=== PATIENT | female | born 1970 | race Caucasian/White ===

== ENCOUNTER → 2020-04-10 14:58 | Outpatient (CLI) | payer BC, SELFPAY ==
[2020-04-10 17:48] LABS: Absolute Lymphocyte Count 2.64 X10^3/uL (0.83-4.51); Absolute Neutrophil Count 5.2 X10^3/uL (2.0-7.7); Basophil# 0.05 X10^3/uL; Basophil% 0.6 % (0-1); Eosinophil# 0.12 X10^3/uL; Eosinophils% 1.4 % (0-5); Hematocrit 39.3 % (37-47); Hemoglobin 12.6 g/dL (12.0-15.0); Lymphocyte # 2.64 X10^3/ul (4.0); Lymphocyte % 30.8 % (19-41); Mean Corp Hgb Conc 32.1 g/dL (32-36); Mean Corpuscular Hgb 30.3 pg (27.0-32.0); Mean Corpuscular Volume 94.5 fL (81-99); Monocyte# 0.47 X10^3/uL; Monocyte% 5.5 % (0-10); NRBC Flagged by Analyzer 0 % (0-5); Neutrophil # 5.15 X10^3/uL (2.7-7.7); Neutrophil % 60.2 % (47-70); Platelet Count 277 K/mm3 (150-450); RBC Distribution Width CV 13.2 % (11.6-14.6); RBC Distribution Width SD 45.6 fl (35.1-43.9); Red Blood Count 4.16 M/mm3 (4.2-5.4); White Blood Count 8.6 K/mm3 (4.4-11.0)
[2020-04-10 19:15] LABS: ALB/GLOB Ratio 0.9 RATIO (0.9-2.4); AST(SGOT) 19 U/L (15-37); Alanine Aminotransfer ALT/SGPT 37 U/L (13-56); Albumin, Serum 3.6 g/dL (3.2-5.0); Alkaline Phosphatase 114 U/L (45-117); Anion Gap 8 (5-15); BUN 15 mg/dL (7-18); BUN/Creat Ratio 16.1 RATIO (10-20); Calcium,Total 9.4 mg/dL (8.5-10.1); Chloride 109 mmol/L (98-107); Cholesterol 179 mg/dL (200); Creatinine, Serum 0.93 mg/dL (0.55-1.02); EST Glomerular Filtration Rate 68 mL/min (>60); Est Glom Filt Rate - Afr Amer 82 mL/min (>60); Globulin 3.8 g/dL (2.2-4.2); Glucose 89 mg/dL (74-106); High Density Lipoprotein 37 mg/dL; Potassium 3.9 mmol/L (3.5-5.1); Protein, Total 7.4 g/dL (6.4-8.2); Sodium Level 141 mmol/L (136-145); T4 Free Direct 0.83 ng/dL (0.76-1.46); Thyroid Stim Hormone (TSH) 3.95 uIU/mL (0.358-3.74)
[2020-04-13 12:38] LABS: H. PYLORI STOOL AG Negative (Negative)
== END ==
PROVIDERS: PCP Family Medicine; Referring Provider Family Medicine; Visit Provider Family Medicine
DX: E03.9 Hypothyroidism, unspecified (principal); E78.00 Pure hypercholesterolemia, unspecified; K21.9 Gastro-esophageal reflux disease without esophagitis; K58.1 Irritable bowel syndrome with constipation
CPT/HCPCS: 36415; 80053; 82465; 83718; 84439; 84443; 85025

== ENCOUNTER → 2020-04-25 13:31 | Outpatient (CLI) | payer BC, SELFPAY ==
--- NOTE | 2020-04-25 13:33 | BI_ITS ---
MAMMOGRAPHY - BILATERAL SCREENING REASON FOR EXAM: Female, 49 years old. Routine annual screening examination. PERTINENT HISTORY: Grandmother with breast cancer. Bilateral milky discharge. TECHNIQUE: Digital bilateral breast camilo (3D mammographic acquisition) in the CC and MLO projections. 2-D mediolateral oblique (MLO) and craniocaudad (CC) views of both breasts were obtained. CAD: Full Field Digital Mammography with Computer Added Detection was performed. COMPARISON: Comparison is made with prior abdomen examination dated 09/16/2017. FINDINGS: Breast Composition: The breasts are extremely dense, which lowers the sensitivity of mammography. There are no dominant masses or suspicious calcifications. Stable benign-appearing left axillary lymph nodes. No other significant abnormalities are identified. There has been no significant change since the prior study. BI/SCRN MAMM (CAD)W/CAMILO BILAT IMPRESSION: Stable bilateral screening mammogram. Yearly follow-up mammogram recommended. (A) ASSESSMENT CATEGORY: BIRADS Category 2: Benign. A letter regarding these results will be sent to the patient by the facility within 30 days. Approximately 10% of breast cancers are not detected by mammography. A normal mammogram should not delay biopsy of a clinically suspicious abnormality. [id number] Electronically Signed: Wilfred Oneill MD at 12:39 EDT , Service support ,
== END ==
PROVIDERS: PCP Family Medicine; Referring Provider Family Medicine; Visit Provider Family Medicine
DX: Z12.31 Encounter for screening mammogram for malignant neoplasm of breast (principal)
CPT/HCPCS: 77063; 77067

== ENCOUNTER → 2020-09-11 12:52 | Outpatient (CLI) | payer BC, SELFPAY ==
[2020-09-05 13:34] VITALS: BMI 36.6
--- NOTE | 2020-09-11 13:04 | ECHOCS_ITS ---
Reason For Study: Abnormal EKG Procedure This was a 2D Doppler, Color Flow transthoracic echocardiogram. The study was technically difficult. Contrast injection was performed. Exam performed in department. Left Ventricle Based upon the 2D electrographic and contrast enhanced images obtained appears to be grossly normal left ventricular size, wall motion, and systolic function. The estimated ejection fraction is 65 %. Transmitral doppler flow suggestive of impaired relaxation of left ventricle. Right Ventricle Normal RV size. Normal systolic function. Atria Normal left atrium. Normal right atrium. No doppler evidence for ASD. Mitral Valve There is no mitral annular calcification. Normal mitral valve. Trivial mitral valve insufficiency. Tricuspid Valve Normal tricuspid valve. Mild tricuspid valve insufficiency. Unable to estimate RV systolic pressure/pulmonary artery pressure due to technically difficult study. Aortic Valve Trisinus/trileaflet aortic valve. Normal aortic valve. Pulmonic Valve The pulmonic valve is not well visualized. Great Vessels Normal sized aortic root. Pericardium/Pleural No pericardial effusion. Medication 22 gauge I.V. with prn adaptor inserted into right arm. Diluted definity 3ml given slow IV push to enhance endocardial definition. MMode/2D Measurements & Calculations LVIDd: 4.9 cm IVSd: 0.82 cm Ao root diam: 3.1 cm LVIDs: 3.1 cm LVPWd: 1.0 cm LA dimension: 3.8 cm FS: 36.0 % LAV(MOD-bp): 35.4 ml LA A4 area: 13.3 cm2 RA A4 area: 11.5 cm2 LAV(MOD-bp) Indexed: 16.8 ml/m2 LAV(MOD-sp2): 44.4 ml LAV(MOD-sp4): 27.1 ml Time Measurements MV dec time: 0.23 sec Doppler Measurements & Calculations MV E max isac: 61.5 cm/sec Lat Peak E' Isac: 8.8 cm/sec Med Peak E' Isac: 8.1 cm/sec MV A max isac: 73.4 cm/sec E/E' lat: 7.0 E/E' med: 7.6 MV E/A: 0.84 MV V2 max: 75.9 cm/sec MV P1/2t max isac: 61.9 cm/sec Ao V2 max: 138.6 cm/sec MV max P.3 mmHg MV P1/2t: 69.0 msec Ao max P.7 mmHg MV V2 mean: 45.8 cm/sec MV dec slope: 262.8 cm/sec2 MV mean P.97 mmHg MV V2 VTI: 15.6 cm MVA(P1/2t): 3.2 cm2 AI max isac: 424.5 cm/sec LV V1 max: 110.1 cm/sec PA V2 max: 95.3 cm/sec AI max P.1 mmHg LV V1 max P.8 mmHg AI dec slope: 253.4 cm/sec2 AI P1/2t: 490.5 msec ECHO/Echo Complete W/ Contrast Interpretation Summary The study was technically difficult. Contrast injection was performed. Based upon the 2D electrographic and contrast enhanced images obtained appears to be grossly normal left ventricular size, wall motion, and systolic function. The estimated ejection fraction is 65 %. Trivial mitral valve insufficiency. Mild tricuspid valve insufficiency. Unable to estimate RV systolic pressure/pulmonary artery pressure due to techni kelley difficult study. Transmitral doppler flow suggestive of impaired relaxation of left ventricle Ordering Physician: Erasmo Casey Referring Physician: Robert Patricia Performed By: Fernandez Koenig RCS
== END ==
PROVIDERS: PCP Family Medicine; Referring Provider Internal Medicine Cardiovascular Disease; Visit Provider Internal Medicine Cardiovascular Disease
DX: R94.31 Abnormal electrocardiogram [ECG] [EKG] (principal); I10 Essential (primary) hypertension; E78.2 Mixed hyperlipidemia; I45.6 Pre-excitation syndrome
CPT/HCPCS: 93225; 93226; 93306; Q9957; A4216; C8929; J3490

== ENCOUNTER → 2021-09-30 | Outpatient (CLI) | payer BC, SELFPAY ==
--- NOTE | 2021-09-30 08:55 | STRESSREP ---
Stress Test Report Date: 09-30-2021 Procedure: Exercise tolerance test/imaging study Indications: Chest pain; cardiac dysrhythmia/WPW status post EPS/RFA Consent: Per the patient Procedure: The patient exercised on a Tk protocol for 4 minutes and 45 seconds completing Stage I and 1 minute and 45 seconds of Stage II achieving a peak heart rate of 151 bpm (88% predicted maximal heart rate) with a peak blood pressure 160/82 mmHg and a peak MET capacity of 7 METs. The baseline ECG demonstrated normal sinus rhythm. The peak exercise ECG demonstrated somatic/motion artifact with no obvious ECG changes. There was a rare PVC at peak exercise. The functional capacity was considered fair. There was no complaint of chest discomfort during exercise or recovery. The examination was discontinued secondary to dyspnea and dizziness. Impression: 1. Technically adequate (percent predicted maximal heart rate greater than 85%) exercise tolerance test 2. Peak exercise ECG with somatic/motion artifact with no obvious ECG changes 3. There was a rare PVC at peak exercise 4. Nuclear images pending Myocardial perfusion imaging study: Technique: The patient was injected with 14.7 mCi of technetium 99m Cardiolite and subsequently rest SPECT Cardiolite nuclear imaging was obtained in the horizontal long, vertical long, and short axis views. The patient exercised on a Tk protocol for 4 minutes and 45 seconds completing Stage I and 1 minute and 45 seconds of Stage II achieving a peak heart rate of 151 bpm (88% predicted maximal heart rate) with a peak blood pressure 160/82 mmHg and a peak MET capacity of 7 METs. The patient was injected with 44.6 mCi of technetium 99m Cardiolite and subsequently stress SPECT Cardiolite nuclear imaging was obtained in the horizontal long, vertical long, and short axis views. A gated Cardiolite study at peak stress was obtained. Interpretation: Rest and stress SPECT Cardiolite nuclear imaging status post realignment, normalization, and attenuation correction, demonstrates the appearance of body motion during image acquisition and otherwise relative uniform tracer uptake and myocardial perfusion appearing within normal limits. There is end systolic thickening and brightening. The gated Cardiolite study demonstrates myocardial thickening and inward wall motion. The reported LVEF is 75%. Impression: 1. Rest and stress SPECT Cardiolite nuclear imaging demonstrate relative uniform tracer uptake and myocardial perfusion appearing within normal limits. 2. The gated Cardiolite study reports an LVEF of 75%. This note was generated with Dragon dictation software. It may contain incorrect words, spelling, and punctuation that were not noted in checking the note before signing.
== END | disposition home or self-care (01) ==
PROVIDERS: PCP Family Medicine; Referring Provider Internal Medicine Cardiovascular Disease; Visit Provider Internal Medicine Cardiovascular Disease
DX: R07.9 Chest pain, unspecified (principal); I45.6 Pre-excitation syndrome; E78.2 Mixed hyperlipidemia; I10 Essential (primary) hypertension; R94.31 Abnormal electrocardiogram [ECG] [EKG]
CPT/HCPCS: 78452; 93017; A9500; A4216

== ENCOUNTER → 2021-12-05 | Outpatient (CLI) | payer BC, SELFPAY ==
[2021-12-05 18:47] LABS: AST(SGOT) 17 U/L (15-37); Alanine Aminotransfer ALT/SGPT 30 U/L (13-56); Alkaline Phosphatase 109 U/L (45-117); Anion Gap 7 (5-15); BUN 19 mg/dL (7-18); BUN/Creat Ratio 18.1 RATIO (10-20); Calcium,Total 9.5 mg/dL (8.5-10.1); Chloride 105 mmol/L (98-107); Cholesterol 202 mg/dL (200); Creatinine, Serum 1.05 mg/dL (0.55-1.02); EST Glomerular Filtration Rate 59 mL/min (>60); Est Glom Filt Rate - Afr Amer 71 mL/min (>60); Globulin 3.9 g/dL (2.2-4.2); Glucose 97 mg/dL (74-106); High Density Lipoprotein 35 mg/dL; Potassium 4.4 mmol/L (3.5-5.1); Protein, Total 7.9 g/dL (6.4-8.2); Sodium Level 138 mmol/L (136-145); T4 Free Direct 0.85 ng/dL (0.76-1.46); Thyroid Stim Hormone (TSH) 2.79 uIU/mL (0.358-3.74); Triglycerides 126 mg/dL; Very Low Density Lipoprotein 25 mg/dL (5-40)
[2021-12-05 19:20] LABS: Hemoglobin A1c 5.9 % (3.8-5.6)
== END | disposition home or self-care (01) ==
LOC: MTLAB 15:29
PROVIDERS: PCP Family Medicine; Referring Provider Family Medicine; Visit Provider Family Medicine
DX: Z00.00 Encounter for general adult medical examination without abnormal findings (principal); F31.9 Bipolar disorder, unspecified; E03.9 Hypothyroidism, unspecified; E78.00 Pure hypercholesterolemia, unspecified; E66.9 Obesity, unspecified; Z68.37 Body mass index [BMI] 37.0-37.9, adult
CPT/HCPCS: 36415; 80053; 80061; 83036; 84439; 84443

== ENCOUNTER → 2022-01-13 | Outpatient (CLI) | payer BC, SELFPAY ==
--- NOTE | 2022-01-13 11:48 | BI_ITS ---
MAMMOGRAPHY - BILATERAL SCREENING REASON FOR EXAM: Female, 51 years old. Routine annual screening examination. PERTINENT HISTORY: Grandmother with breast cancer. Aunts with breast cancer. TECHNIQUE: Digital bilateral breast camilo (3D mammographic acquisition) in the CC and MLO projections. 2-D mediolateral oblique (MLO) and craniocaudad (CC) views of both breasts were obtained. CAD: Full Field Digital Mammography with Computer Added Detection was performed. COMPARISON: Comparison is made with prior study dated 04/25/2020. FINDINGS: Breast Composition: The breasts are extremely dense, which lowers the sensitivity of mammography. There are no dominant masses or suspicious calcifications. Stable small benign-appearing bilateral axillary lymph nodes. No other significant abnormalities are identified. There has been no significant change since the prior study. BI/SCRN MAMM (CAD)W/CAMILO BILAT IMPRESSION: Stable bilateral screening mammogram. Yearly follow-up mammogram recommended. (A) ASSESSMENT CATEGORY: BIRADS Category 2: Benign. A letter regarding these results will be sent to the patient by the facility within 30 days. Approximately 10% of breast cancers are not detected by mammography. A normal mammogram should not delay biopsy of a clinically suspicious abnormality. [id number] Electronically Signed: Wilfred Oneill MD at 12:59 EST ,
== END | disposition home or self-care (01) ==
LOC: OPBI 11:32
PROVIDERS: PCP Family Medicine; Referring Provider Family Medicine; Visit Provider Family Medicine
DX: Z12.31 Encounter for screening mammogram for malignant neoplasm of breast (principal)
CPT/HCPCS: 77063; 77067

== ENCOUNTER → 2023-01-20 | Outpatient (CLI) | payer BC, SELFPAY ==
[2023-01-20 15:39] LABS: ALB/GLOB Ratio 1.1 RATIO (0.9-2.4); AST(SGOT) 28 U/L (15-37); Alanine Aminotransfer ALT/SGPT 42 U/L (13-56); Albumin, Serum 3.6 g/dL (3.2-5.0); Alkaline Phosphatase 89 U/L (45-117); Anion Gap 4 (5-15); BUN 15 mg/dL (7-18); BUN/Creat Ratio 15.7 RATIO (10-20); Calcium,Total 8.6 mg/dL (8.5-10.1); Chloride 108 mmol/L (98-107); Cholesterol 176 mg/dL (200); Creatinine, Serum 0.96 mg/dL (0.55-1.02); EST Glomerular Filtration Rate 65 mL/min (>60); Est Glom Filt Rate - Afr Amer 79 mL/min (>60); Globulin 3.4 g/dL (2.2-4.2); Glucose 113 mg/dL (74-106); High Density Lipoprotein 42 mg/dL; Potassium 4.3 mmol/L (3.5-5.1); Sodium Level 137 mmol/L (136-145); T4 Free Direct 0.82 ng/dL (0.76-1.46); Thyroid Stim Hormone (TSH) 3.03 uIU/mL (0.358-3.74); Triglycerides 82 mg/dL; Very Low Density Lipoprotein 16 mg/dL (5-40)
[2023-01-20 15:48] LABS: Microalbumin,Random Urine 25.5 mg/L (NO RANGE EST.); Microalbumin:Creatinine Ratio 8.9 mg/g CRE (<30 mg/g CRE)
[2023-01-20 16:22] LABS: Vitamin D,25 Hydroxy 20.7 ng/mL
== END | disposition home or self-care (01) ==
LOC: MFPLAB 12:26
PROVIDERS: PCP Family Medicine; Visit Provider Family Medicine
DX: E03.9 Hypothyroidism, unspecified (principal); E66.9 Obesity, unspecified; N18.2 Chronic kidney disease, stage 2 (mild); E78.00 Pure hypercholesterolemia, unspecified
CPT/HCPCS: 36415; 80053; 80061; 82043; 82306; 82570; 84439; 84443

== ENCOUNTER → 2023-06-15 | Outpatient (CLI) | payer BC, SELFPAY ==
--- NOTE | 2023-06-15 12:29 | BI_ITS ---
MAMMOGRAPHY - BILATERAL SCREENING REASON FOR EXAM: Female, 52 years old. Routine annual screening examination. PERTINENT HISTORY: Grandmother with breast cancer. Aunts with breast cancer. TECHNIQUE: Digital bilateral breast camilo (3D mammographic acquisition) in the CC and MLO projections. 2-D mediolateral oblique (MLO) and craniocaudad (CC) views of both breasts were obtained. CAD: Full Field Digital Mammography with Computer Added Detection was performed. COMPARISON: Comparison is made with prior study dated January 13, 2022 and April 25, 2020. FINDINGS: Breast Composition: The breasts are extremely dense, which lowers the sensitivity of mammography. There are no dominant masses or suspicious calcifications. No other significant abnormalities are identified. There has been no significant change since the prior study. BI/SCRN MAMM (CAD)W/CAMILO BILAT IMPRESSION: Stable bilateral screening mammogram. Yearly follow-up mammogram recommended. (A) ASSESSMENT CATEGORY: BIRADS Category 1: Negative. A letter regarding these results will be sent to the patient by the facility within 30 days. Approximately 10% of breast cancers are not detected by mammography. A normal mammogram should not delay biopsy of a clinically suspicious abnormality. [id number] Electronically Signed: Wilfred Oneill MD at 13:36 EDT ,
== END | disposition home or self-care (01) ==
LOC: OPBI 12:28
PROVIDERS: PCP Family Medicine; Referring Provider Family Medicine; Visit Provider Family Medicine
DX: Z12.31 Encounter for screening mammogram for malignant neoplasm of breast (principal)
CPT/HCPCS: 77063; 77067

== ENCOUNTER → 2023-07-22 | Outpatient (CLI) | payer BC, SELFPAY ==
[2023-07-22 17:49] LABS: Absolute Lymphocyte Count 3.11 X10^3/uL (0.83-4.51); Absolute Neutrophil Count 4.7 X10^3/uL (2.0-7.7); Basophil# 0.06 X10^3/uL; Basophil% 0.7 % (0-1); Eosinophil# 0.09 X10^3/uL; Hematocrit 39.4 % (37-47); Hemoglobin 12.9 g/dL (12.0-15.0); Lymphocyte # 3.11 X10^3/ul (0.83-4.51); Lymphocyte % 35.8 % (19-41); Mean Corp Hgb Conc 32.7 g/dL (32-36); Mean Corpuscular Hgb 30.8 pg (27.0-32.0); Mean Platelet Vol. 10.1 fl (6.2-12.0); Monocyte# 0.57 X10^3/uL; Monocyte% 6.6 % (0-10); NRBC Flagged by Analyzer 0 % (0-5); Neutrophil % 54.1 % (47-70); Platelet Count 265 K/mm3 (150-450); RBC Distribution Width CV 12.9 % (11.6-14.6); RBC Distribution Width SD 44.6 fl (35.1-43.9); Red Blood Count 4.19 M/mm3 (4.2-5.4); White Blood Count 8.7 K/mm3 (4.4-11.0)
[2023-07-22 18:27] LABS: ALB/GLOB Ratio 1.1 RATIO (0.9-2.4); AST(SGOT) 34 U/L (15-37); Alanine Aminotransfer ALT/SGPT 46 U/L (13-56); Albumin, Serum 3.9 g/dL (3.2-5.0); Alkaline Phosphatase 99 U/L (45-117); Anion Gap 6 (5-15); BUN 19 mg/dL (7-18); BUN/Creat Ratio 22.3 RATIO (10-20); Calcium,Total 9.4 mg/dL (8.5-10.1); Chloride 107 mmol/L (98-107); Creatinine, Serum 0.85 mg/dL (0.55-1.02); EST Glomerular Filtration Rate 74 mL/min (>60); Est Glom Filt Rate - Afr Amer 90 mL/min (>60); Free T3 2.1 pg/mL (2.18-3.98); Globulin 3.7 g/dL (2.2-4.2); Glucose 67 mg/dL (74-106); Lipase 29 U/L (13-75); Potassium 4.1 mmol/L (3.5-5.1); Protein, Total 7.6 g/dL (6.4-8.2); Sodium Level 137 mmol/L (136-145); T4 Free Direct 0.83 ng/dL (0.76-1.46); Thyroid Stim Hormone (TSH) 3.39 uIU/mL (0.358-3.74)
[2023-07-25 15:09] LABS: H. PYLORI STOOL AG Negative (Negative)
[2023-07-26 16:09] LABS: Deamidated Gliadin IgA 3 units (0-19); Deamidated Gliadin IgG 2 units (0-19); Endomysial Antibody IgA Negative (Negative); Immunoglobulin A 68 mg/dL (87-352); t-Transglutaminase IgA <2 U/mL (0-3)
[2023-07-27 11:09] LABS: Beef <0.10 kU/L (Class 0); Chocolate <0.10 kU/L (Class 0); Codfish <0.10 kU/L (Class 0); Corn <0.10 kU/L (Class 0); Egg, Whole <0.10 kU/L (Class 0); Milk (Cow) <0.10 kU/L (Class 0); Mussels <0.10 kU/L (Class 0); Peanut <0.10 kU/L (Class 0); Pork <0.10 kU/L (Class 0); Salmon <0.10 kU/L (Class 0); Shrimp <0.10 kU/L (Class 0); Soybean <0.10 kU/L (Class 0); Tuna <0.10 kU/L (Class 0); Wheat <0.10 kU/L (Class 0)
== END | disposition home or self-care (01) ==
LOC: MFPLAB 14:35
PROVIDERS: PCP Family Medicine; Visit Provider Family Medicine
DX: E03.9 Hypothyroidism, unspecified (principal); R10.13 Epigastric pain; R11.10 Vomiting, unspecified
CPT/HCPCS: 36415; 80053; 82784; 83516; 83690; 84439; 84443; 84481; 85025; 86003; 86005; 86255; 87338

== ENCOUNTER → 2023-08-06 | Outpatient (CLI) | payer BC, SELFPAY ==
--- NOTE | 2023-08-06 08:30 | RAD_ITS ---
PROCEDURE: After contrast Upper GI with Small Bowel Follow Through DATE OF EXAMINATION: August 06, 2023.. INDICATION: Female, 52 years old. Vomiting and epigastric pain. FLUOROSCOPY TIME (if supplied): (1:20) minutes/seconds. 53.19 mGy. 18 images were obtained. TECHNIQUE: Radiographic and fluoroscopic images of the distal esophagus, stomach, and entire small intestine were obtained following the oral ingestion of barium. COMPARISON: None. FINDINGS: The 911 emergency services dispatcher film of the abdomen demonstrates a normal bowel gas pattern. There are no abnormal calcifications or organomegaly demonstrated. The visualized osseous structures are normal. The esophagus is unremarkable. No evidence of obstruction. No gastroesophageal reflux is seen. The stomach and duodenum are unremarkable. A single contrast small bowel follow through exam demonstrates the small bowel to have no evidence for stricture, ulceration or mass. The transit time is normal at 30 minutes. RAD/Upper GI/w Small Bowel IMPRESSION: 1. Normal air-contrast upper GI and small bowel follow-through exam. Electronically Signed: Wilfred Oneill MD at 15:09 EDT ,
== END | disposition home or self-care (01) ==
LOC: RAD 08:03
PROVIDERS: PCP Family Medicine; Referring Provider Family Medicine; Visit Provider Family Medicine
DX: R10.13 Epigastric pain (principal)
CPT/HCPCS: 74246; 74248

== ENCOUNTER 2023-12-02 12:30 | Outpatient (RCR) | payer BC, SELFPAY ==
--- NOTE | 2023-10-28 13:35 | HP.PTEVAL_ITS ---
Patient's Visit Information Visit Information Visit Information: HAMMAD GARCIA is a 53 year old F referred to Physical Therapy by Dr. Robert Patricia MD with a diagnosis of RIGHT PATEALLA SUBLUXATION. Date of Evaluation: 10/28/23 Physical Therapist: Kirill Zhang PT, Cert MDT, OCS Visit Plan Frequency: 2x /Week Duration: 4 Weeks Plan: PT INTERVENTIONS QUADS/HAMS/HIP STRENGTHENING ,(CLOSED RIDLEY ) ,F LEXABILITY AND FUNCTIONAL STRENGTHENING Subjective Subjective: This 53 y/o female presents to physical therapy with right knee pain. Patient has had right knee pain ~ 1 year. Patient fell on knee 1 year ago caused pain. Seen DR recommended PT and no imaging. Patient has h/o subluxation knee. Pain located patella . Pain described ache/sharp. Aggravating factors squatting/kneeling . Alleviating factors. rest. Patient symptoms affects QOL and function. Patient goals to get stronger. Patient sleeping good at night . Patient denies paresthesia/tingling. SOCIAL: single VOACTION: disability Pain Right Knee: Pain Intensity (Out of 10): 2 Pain Intensity Range: 10 Objective Objective: POSTURE: knee valgus ,patella lexie ,lateral tilt patella NEURO: denies paresthesia/tingling AROM: noted crepitus GAIT: reciprocal pattern AROM: 0-125 Degrees with crepitus MMT: quads/hams ,( peak force)hip abduction right 22.1 ,ankle 5/5 NEURO: denies paresthesia/tingling Balance/Special Test Scores Lower Extremity Functional Score: 38 Goals Goal 1:: Patient to be I with HEP for knee Goal Time Frame: 4-6 Weeks Goal 2:: Patient to improve LFES score by 5 points to improve QOL and function Goal Time Frame: 4-6 Weeks Goal 3:: Patient to demonstrate 50% improvement with function and ADLS with less pain. 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 with pain with activity and generalized weakness thus benefit from skilled PT Rehabilitation Potential: Good Anticipated Interventions Patient/Client Instruction: Educate patient on: Condition and Plan of Care For the Purpose of:: To decrease pain, To increase ROM, To improve muscle performance and motor function, To improve ability to perform ADL's, To increase tolerance to activity/condition/position, To improve ability of physical actions for home/community/work/leisure, To improve gait and locomotor functions, To increase flexibility/ROM, To improve endurance, To improve balance, To reduce ri sk of recurrence and To improve tolerance to ADL's Therapeutic Exercise to Include: Strength training, Flexibilty training and Active ROM Comment: QUADS/HAMS/HIP For the Purpose of:: To decrease pain, To increase ROM, To improve muscle performance and motor function, To increase tolerance to activity/condition/position, To improve ability of physical actions for home/community/work/leisure, To improve health of tissue, To decrease soft tissue restriction, To increase flexibility/ROM and To prevent re-injury TENS: Yes IF ES: Yes Cryotherapy (ice pack, ice massage): Yes Ultrasound (thermal/non thermal): Yes For the Purpose of:: To decrease pain, To decrease swelling/inflammation, To improve health of tissue and To decrease soft tissue restriction Text: Thank you for the opportunity to evaluate your patient. For Medicare and Medicare HMO plans, please review the plan of care and approve it. It will need to be FAXED BACK to us at [phone] for Medicare purposes. For Medicare only, by signing this I certify the plan of care. Please let me know if there are questions or concerns regarding this plan of care. Physician Signat ure: Date:
--- NOTE | 2023-12-02 12:50 | HP.PTDCSUM ---
Discharge Summary D/C summary: It has been my pleasure to treat HAMMAD GARCIA referred by Dr. Robert Patricia MD, with the diagnosis of RIGHT PATEALLA SUBLUXATION for a total of 9 visit(s). Discharge Date: 12/02/23 Please see the following information for a summary of their discharge status. Subjective Subjective: Patient doing well less pain little pain with steps Pain Right Knee: Pain Intensity (Out of 10): 0 Overall Improvement % Improvement: 70 Objective Objective/Function: POSTURE: knee valgus ,patella lexie ,lateral tilt patella NEURO: denies paresthesia/tingling AROM: noted crepitus GAIT: reciprocal pattern AROM: 0-125 Degrees with crepitus MMT: quads/hams ,( peak force)hip abduction right 28.1 ,ankle 5/5 NEURO: denies paresthesia/tingling Goals Goal 1:: Patient to be I with HEP for knee Goal Progress: Goal Met Goal 2:: Patient to improve LFES score by 5 points to improve QOL and function Goal Progress: Goal Met Goal 3:: Patient to demonstrate 50% improvement with function and ADLS with less pain. Goal Progress: Goal Met Goal 4:: Patient to improve peak force hips by 5-10 # to improve function and gait Goal Progress: Goal Met Plan Plan: D.C TO HOME D/C Information Discharge Comments: HEP d/c sentence: If there are questions or concerns regarding this patient's physical therapy, please feel free to call me at [phone]. Thank you for the referral of this patient. Sincerely, Kirill Zhang, PT, Cert MDT, OCS Balance/Gait/Functional tests Balance/Special Test Scores Lower Extremity Functional Score: 55 Improvement % Improvement: 70
== END 2023-12-02 19:00 | disposition home or self-care (01) ==
LOC: PT 12:30
PROVIDERS: PCP Family Medicine; Referring Provider Family Medicine; Visit Provider Family Medicine
DX: S83.001D Unspecified subluxation of right patella, subsequent encounter (principal); M22.41 Chondromalacia patellae, right knee
CPT/HCPCS: 97110; 97162; 97530

== ENCOUNTER → 2024-02-04 | Outpatient (CLI) | payer BC, SELFPAY ==
[2024-02-04 15:09] LABS: Hematocrit 38.9 % (37-47); Hemoglobin 13.1 g/dL (12.0-15.0); Mean Corp Hgb Conc 33.7 g/dL (32-36); Mean Corpuscular Hgb 30.5 pg (27.0-32.0); Mean Corpuscular Volume 90.7 fL (81-99); Mean Platelet Vol. 10.4 fl (6.2-12.0); Platelet Count 242 K/mm3 (150-450); RBC Distribution Width CV 12.8 % (11.6-14.6); RBC Distribution Width SD 42.2 fl (35.1-43.9); Red Blood Count 4.29 M/mm3 (4.2-5.4); White Blood Count 7.7 K/mm3 (4.4-11.0)
[2024-02-04 17:00] LABS: Hemoglobin A1c 6.1 % (3.8-5.6)
[2024-02-04 18:11] LABS: ALB/GLOB Ratio 1.1 RATIO (0.9-2.4); AST(SGOT) 32 U/L (15-37); Alanine Aminotransfer ALT/SGPT 51 U/L (13-56); Albumin, Serum 3.9 g/dL (3.2-5.0); Alkaline Phosphatase 105 U/L (45-117); Anion Gap 8 (5-15); BUN 17 mg/dL (7-18); BUN/Creat Ratio 17.1 RATIO (10-20); Calcium,Total 9.6 mg/dL (8.5-10.1); Chloride 108 mmol/L (98-107); Cholesterol 193 mg/dL (200); EST Glomerular Filtration Rate 62 mL/min (>60); Est Glom Filt Rate - Afr Amer 75 mL/min (>60); Globulin 3.5 g/dL (2.2-4.2); Glucose 94 mg/dL (74-106); High Density Lipoprotein 48 mg/dL; Potassium 4.1 mmol/L (3.5-5.1); Protein, Total 7.4 g/dL (6.4-8.2); Sodium Level 137 mmol/L (136-145); Triglycerides 83 mg/dL; Very Low Density Lipoprotein 17 mg/dL (5-40)
[2024-02-06 08:07] LABS: PROLACTIN 55.3 ng/mL (3.6-25.2)
== END | disposition home or self-care (01) ==
LOC: MTLAB 13:00
PROVIDERS: PCP Family Medicine; Referring Provider Psychiatry & Neurology Psychiatry; Visit Provider Psychiatry & Neurology Psychiatry
DX: Z79.899 Other long term (current) drug therapy (principal)
CPT/HCPCS: 36415; 80053; 80061; 83036; 84146; 84443; 85027

== ENCOUNTER → 2024-05-02 | Outpatient (CLI) | payer BC, SELFPAY ==
[2024-05-02 18:57] LABS: ALB/GLOB Ratio 1.5 RATIO (0.9-2.4); AST(SGOT) 37 U/L (<=31); Alanine Aminotransfer ALT/SGPT 43 U/L (<=34); Albumin, Serum 4.3 g/dL (3.5-5.0); Alkaline Phosphatase 92 U/L (35-104); Anion Gap 9 (5-15); BUN 18 mg/dL (4-19); BUN/Creat Ratio 19.3 RATIO (10-20); Calcium,Total 9.5 mg/dL (7.6-11.0); Carbon Dioxide 21.9 mmol/L (21.0-32.0); Chloride 105 mmol/L (98-108); Creatinine, Serum 0.92 mg/dL (0.70-1.20); EST Glomerular Filtration Rate 75 (>60); Globulin 2.8 g/dL (2.2-4.2); Glucose 93 mg/dL (70-99); Potassium 4.2 mmol/L (3.3-5.1); Protein, Total 7.1 g/dL (5.9-8.4); Sodium Level 136 mmol/L (133-145); Total Bilirubin 0.27 mg/dL (0.00-1.30)
[2024-05-02 19:00] LABS: Hemoglobin A1c 6.2 % (<=5.6)
== END | disposition home or self-care (01) ==
LOC: MFPLAB 15:55
PROVIDERS: PCP Family Medicine; Referring Provider Family Medicine; Visit Provider Family Medicine
DX: R73.03 Prediabetes (principal); R79.89 Other specified abnormal findings of blood chemistry
CPT/HCPCS: 36415; 80053; 83036; 84146

== ENCOUNTER → 2024-05-11 | Outpatient (CLI) | payer BC, SELFPAY ==
--- NOTE | 2024-05-11 09:17 | US_ITS ---
EXAM: ABDOMEN LIMITED 05/11/2024 CLINICAL HISTORY: Abnormal labs COMPARISON: None available TECHNIQUE: Right upper quadrant abdominal ultrasound limited FINDINGS: The visualized pancreas appears within limits without ductal dilation identified. The liver measures 17.9 cm and appears diffusely increased in echogenicity which can be seen with hepatic steatosis or other hepatocellular disease. Liver surface contour appears smooth. No evidence of intrahepatic biliary ductal dilation. Hepatic color flow is present with flow in the portal vein hepatopetal as expected. The gallbladder appears within limits without stones, wall thickening or pericholecystic free fluid. Report of a negative sonographic Jim's sign. Wall measures 2 mm. CBD measures 3 mm. The right kidney measures 10.6 x 5.5 x 4.7 cm with a cortical thickness of 1.3 cm. No hydronephrosis, renal stone or perinephric edema seen. No free fluid seen. US/Abdomen Limited IMPRESSION: The liver measures appears diffusely increased in echogenicity which can be see n with hepatic steatosis or other hepatocellular disease. Liver surface contour appears smooth. Reading Location: [id number]
== END | disposition home or self-care (01) ==
PROVIDERS: PCP Family Medicine; Referring Provider Family Medicine; Visit Provider Family Medicine
DX: R74.8 Abnormal levels of other serum enzymes (principal)
CPT/HCPCS: 76705

== ENCOUNTER 2024-05-31 13:00 | Outpatient (RCR) | payer BC, SELFPAY ==
--- NOTE | 2024-05-12 13:11 | HP.PTEVAL ---
Patient's Visit Information Visit Information Visit Information: HAMMAD GARCIA is a 53 year old F referred to Physical Therapy by Dr. Robert Patricia MD with a diagnosis of postural abnormality, dizzyness, hand tremor.. Date of Evaluation: 05/12/24 Physical Therapist: Robert Sánchez, DPT, OCS, CSCS Visit Plan Frequency: 2x /Week Duration: 2-4 Weeks Plan: 2x/week for 2 weeks for 1. MH and STM to pericervical MM B, please do manual ROM for rotation adn ret/ext and progress to home stretches of UT, lev scap and strengthening to neck with pics. EACH SESSION 2. please teach general overall body exercises and work to an I program over 4 visits(squats, , heel raises, hip abd and ext, crunches, rows, pull downs, cervical ret isometrics, paloff press, all with technique and pics for HEP over 4 visits. IE HEP, scap circles, cervical ret 15x 2x/day and postural focus aligning spine. Monitor dizzyness and tremors not present today. Subjective Subjective: Dr. Patricia wants neck looked at as it is tight. Other than tightnss , no other symptoms. Does get dizzy sometimes and tremors in hands in the am but not all the time and not a fucntional problem. No neck pain. Gets hand tremors and dizzyness upon waking one time per week. It lasts only a couple minutes. Neck has felt tight for weeks and may have slept wrong. Lives with mom in one story and no steps. Getting around well, no falls. Balance feels OK. Spends day working around house, mail, walk. Cleans. Not employed. Sleeping well. Basic ADLS all I Objective Objective: FW head posture with protracted scapula, tightness in pecs. Structural kyphosis and possibly thoracic scoliosis in her posture. walks into I with good balance, trasnfer chair I, steps reciprocal with one rail up and down. cervical AROM 65 rotation B feels tight, 50 extension with slight deviation L, feels tight, full flexion, L SB 20 adn R 24, no pain with any movements. UE AROM WFL shouldr, elbows, wrists. reflexes 2/3 bi adn tri Sensation UE WNL to gross light touch B UE. strength shoulder er 3+ B, IR 4- B, flexion abd 4-, no pain. elbows 4 B, wirsts 4 B, no myotomal abormalities or concerns. thumb ext 4/5 without pain. scapula are stable and protracted with limitations in mobillity retractions and depression as she tends to elevate them B. - c/s compression test - alar ligament test. No tenderness in cervical MM. Balance/Special Test Scores Functional Gait Assessment Score: 28 % Disability: 6.6700 Oswestry Neck Score: 12 Goals Goal 1:: 70 B rotation and 60 ext without stiffness. Goal Time Frame: 2-4 Weeks Goal 2:: Pt I in appropriate strength for whole body and neck ROM/ stretching ex. Goal Time Frame: 2-4 Weeks Goal 3:: Pt feel 50% better in overall presentation. Goal Time Frame: 2-4 Weeks Rehabilitation Potential Physical Therapy Diagnosis: postural abnormalities and weakness UE/posture may cause unnecessary symptoms. Rehabilitation Potential: Questionable Anticipated Interventions Patient/Client Instruction: Educate patient on: Condition For the Purpose of:: To increase ROM, To improve nutrient delivery to tissue, To increase tolerance to activity/condition/position and To improve ability of physical actions for home/community/work/leisure Therapeutic Exercise to Include: Strength training, Postural training, Flexibilty training, Passive ROM and Active ROM For the Purpose of:: To increase ROM, To improve nutrient delivery to tissue, To improve muscle performance and motor function, To increase tolerance to activity/condition/position, To improve ability of physical actions for home/community/work/leisure and To improve health of tissue Manual Therapy Techniques to Include: Mobilization, Passive ROM and Soft tissue mobilization For the Purpose of:: To improve nutrient delivery to tissue, To increase oxygenation perfusion, To increase tolerance to activity/condition/position and To improve health of tissue Thermo therapy (hot pack): Yes For the Purpose of:: To increase ROM Text: Thank you for the opportunity to evaluate your patient. For Medicare and Medicare HMO plans, please review the plan of care and approve it. It will need to be FAXED BACK to us at [phone] for Medicare purposes. For Medicare only, by signing this I certify the plan of care. Please let me know if there are questions or concerns regarding this plan of care. Physician Signature: Date:
--- NOTE | 2024-05-31 14:13 | HP.PTDCSUM ---
Discharge Summary D/C summary: It has been my pleasure to treat HAMMAD GRACIA referred by Dr. Robert Patricia MD, with the diagnosis of postural abnormality, dizzyness, hand tremor. for a total of 5 visit(s). Discharge Date: 05/31/24 Please see the following information for a summary of their discharge status. Subjective Subjective: Feeling better. Neck feels much better and burning in quadriceps with ex. Tremors are better. Not much dizzyness anymore infrequent in am. Not sure when f/u is with doctor. Wants to do ex at home now. Overall Improvement % Improvement: 95 Objective Objective/Function: 68 R and 66 L and 62 exercises Full UE AROM and strength at 4/5 adn no pain in neck or UE. no dizzynss with head movements today. No tremors Goals Goal 1:: 70 B rotation and 60 ext without stiffness. Goal Progress: Progressing Goal 2:: Pt I in appropriate strength for whole body and neck ROM/ stretching ex. Goal Progress: Goal Met Goal 3:: Pt feel 50% better in overall presentation. Goal Progress: 95% Plan Plan: d/c to HEP D/C Information Discharge Comments: Will continue HEP. d/c sentence: If there are questions or concerns regarding this patient's physical therapy, please feel free to call me at [phone]. Thank you for the referral of this patient. Sincerely, Robert Sánchez, DPT, OCS, CSCS Balance/Gait/Functional tests Balance/Special Test Scores Functional Gait Assessment Score: 28 % Disability: 6.6700 Oswestry Neck Score: 10 Improvement % Improvement: 95
== END 2024-05-31 14:39 | disposition home or self-care (01) ==
LOC: PT 13:00
PROVIDERS: PCP Family Medicine; Referring Provider Family Medicine; Visit Provider Family Medicine
DX: R42 Dizziness and giddiness (principal); G25.2 Other specified forms of tremor
CPT/HCPCS: 97110; 97140; 97161; 97164

== ENCOUNTER → 2024-06-01 | Outpatient (CLI) | payer BC, SELFPAY ==
--- NOTE | 2024-06-01 09:26 | US_ITS ---
PROCEDURE: ELASTOGRAPHY PARENCHYMA/ORGAN 06/01/2024 REASON FOR EXAM: HEPATIC STEATOSIS TECHNIQUE: Elastography was performed. COMPARISON: None FINDINGS: KPA: 10.1. Velocity: 1.84 m/sec. Metavir score: F2/F3 US/Elastography Parenchyma/Organ IMPRESSION: F2/F3. Reading Location: [place] [id number]
== END | disposition home or self-care (01) ==
LOC: US 09:24
PROVIDERS: PCP Family Medicine; Referring Provider Family Medicine; Visit Provider Family Medicine
DX: K76.0 Fatty (change of) liver, not elsewhere classified (principal)
CPT/HCPCS: 76981